=== PATIENT | female | born 1990 | race Caucasian/White ===

== ENCOUNTER 2018-10-11 11:06 | Emergency (ER) | payer BC ==
[~2018-10-11] VITALS: Ht 154.9 cm; Wt 68.0 kg
[2018-10-11 11:40] LABS: BASOPHILS # (AUTO) 0.1 (0.0-0.1); BASOPHILS % 0.7 % (0.0-1.0); EOSINOPHILS # (AUTO) 0.1 (0.0-0.4); EOSINOPHILS % 1.6 % (0.0-6.0); HEMATOCRIT 45.3 % (34.2-44.1); HEMOGLOBIN 15.1 g/dL (12.0-16.0); LYMPHOCYTES % 40.6 % (18.0-39.1); MEAN CORPUSCULAR HEMOGLOBIN 29.8 pg (28-32); MEAN CORPUSCULAR HGB CONC 33.3 g/dL (31-35); MEAN CORPUSCULAR VOLUME 89.3 fL (81-99); MONOCYTES # (AUTO) 0.4 (0.2-0.8); MONOCYTES % 4.9 % (4.4-11.3); NEUTROPHILS # (AUTO) 3.8 (2.1-6.9); NEUTROPHILS % 51.9 % (38.7-80.0); PLATELET COUNT 296 x10e3/uL (140-360); RED BLOOD COUNT 5.07 x10e6/uL (3.6-5.1); RED CELL DISTRIBUTION WIDTH 11.6 % (11.7-14.4)
[2018-10-11 11:56] LABS: ALANINE AMINOTRANSFERASE 15 IU/L (0-55); ALBUMIN 4.1 g/dL (3.5-5.0); ALBUMIN/GLOBULIN RATIO 1.2 (0.8-2.0); ALKALINE PHOSPHATASE 64 IU/L (40-150); AMYLASE 114 U/L (25-125); ANION GAP 16.6 mmol/L (8-16); BLOOD UREA NITROGEN 11 mg/dL (7-26); BUN/CREATININE RATIO 15 (6-25); CALCIUM 9.6 mg/dL (8.4-10.2); CARBON DIOXIDE 25 mmol/L (22-29); CHLORIDE 101 mmol/L (98-107); CREATININE, SERUM 0.73 mg/dL (0.57-1.11); EST GLOMERULAR FILTRATION RATE > 60 ML/MIN (60-); GLUCOSE 74 mg/dL (74-118); LIPASE 128 U/L (8-78); POTASSIUM 3.6 mmol/L (3.5-5.1); SODIUM 139 mmol/L (136-145)
[2018-10-11 12:16] LABS: THYROID STIMULATING HORMONE 1.357 uIU/mL (0.350-4.940)
--- NOTE | 2018-10-11 12:34 | NUR ---
STILL GETTING ULTRASOUND
--- NOTE | 2018-10-11 13:10 | Diagnostic Imaging Report ---
Gallbladder ultrasound. Clinical History: Epigastric pain. Bloating. Shoulder pain. Comparison: None Findings: Transverse and longitudinal imaging of the right upper quadrant. The liver is normal in size and appearance measuring 12.5 cm. The gallbladder is contracted due to recent meal. The gallbladder is otherwise normal in appearance without gallstones or sludge. No gallbladder wall thickening or pericholecystic fluid. There is no biliary ductal dilatation. The common bile duct measures4.1 mm. The sonographic Quevedo's sign is negative. No free fluid in Bui's pouch. Right kidney is normal in appearance without mass, hydronephrosis, or stone measuring 9.0 cm. The pancreas is not well seen. The abdominal aorta and inferior vena cava are not well seen. The main portal vein diameter is 9.7 mm, with normal flow. Impression: The gallbladder is contracted due to recent meal. The gallbladder is otherwise unremarkable. No gallstones are seen. No ductal dilatation is seen. Signed by: Dr. Zachary Corona M.D. on 10/11/2018 1:07 PM
[2018-10-11] MEDS ORDERED: DONNATAL/LIDOCAINE/MAALOX 30 ML SUSP PO ONE (14:00)
[2018-10-11] MEDS ORDERED: KETOROLAC TROMETHAMINE 60 MG/2 ML VIAL IM ONE (14:00)
== END 2018-10-11 14:05 | disposition home or self-care (01) ==
LOC: FSED 11:06
DX: R10.11 Right upper quadrant pain (principal); R10.84 Generalized abdominal pain; R11.0 Nausea
CPT/HCPCS: 36415; 76705; 80053; 80076; 81003; 82150; 83690; 84443; 84702; 85025; 99284; J1885

== ENCOUNTER → 2018-11-03 | Day surgery (SDC) | payer BC ==
[~2018-11-03] MED LIST: FENTANYL CITRATE/PF 100MCG/2 ML INJ ONE; HYOSCYAMINE SULFATE 0.5 MG/ML INJ ONE; LIDOCAINE HCL 2% LOCAL INJ 5 ML SDV VIAL INJ ONE; MIDAZOLAM HCL 2 MG/2 ML VIAL ONE; ONDANSETRON HCL INJ 2MG/ML 2ML 2 MG/ML VIAL ONE; PANTOPRAZOLE 40 MG 10ML VIAL ONE; PROPOFOL IV EMULSION 10 MG/ML 20 ML VIAL ONE; PROPOFOL IV EMULSION 10 MG/ML 50 ML VIAL ONE; SPRINTEC1 EACH PO
--- OUTSIDE RECORDS SUMMARY | 2018-11-03 08:00 | XMS REPORT ---
Author [facility] Address Unknown Phone Unavailable Care Team Providers Care Climate Change Risk Assessor Name Role Phone Adriane AMADOR Unavailable Unavailable Problems This patient has no known problems. Allergies, Adverse Reactions, Alerts This patient has no known allergies or adverse reactions. Medications This patient has no known medications. Results Test Description Test Time Test Comments Text Results Atomic Results Result Comments GALL BLADDER-HOPD 2018-10-11 13:05:00 [place] [address] Patient Name: DIANELYS BARRETT MR #: [id number] : 1990 Age/Sex: 28/F Req #: [id number] Adm Physician: Ordered by: SERGIO AMADOR MD Report #: [id number] Location: [facility] [place] Room/Bed: [facility] [id number] Exam Date: 10/11/18 Exam Time: 1224 REPORT STATUS: Signed Gallbladder ultrasound. Clinical History: Epigastric pain. Bloating. Shoulder pain. Comparison: None Findings: Transverse and longitudinal imaging of the right upper quadrant. The liver is normal in size and appearance measuring 12.5 cm. The gallbladder is contracted due to recent meal. The gallbladder is otherwise normal in appearance without gallstones or sludge. No gallbladder wall thickening or pericholecystic fluid. There is no biliary ductal dilatation. The common bile duct measures4.1 mm. The sonographic Quevedo's sign is negative. No free fluid in Bui's pouch. Right kidney is normal in appearance without mass, hydronephrosis, or stone measuring 9.0 cm. The pancreas is not well seen. The abdominal aorta and inferior vena cava are not well seen. The main portal vein diameter is 9.7 mm, with normal flow. Impression: The gallbladder is contracted due to recent meal. The gallbladder is otherwise unremarkable. No gallstones are seen. No ductal dilatation is seen. Signed by: Dr. Zachary Corona M.D. on 10/11/2018 1:07 PM Dictated By: ZACHARY CORONA MD, MD 1302 Transcribed By: VALENCIA on 10/11/18 1303 COPY TO: SERGIO AMADOR MD
[2018-11-03 12:00] VITALS: BP 122/81
[2018-11-03 19:29] LABS: WBC,FECAL (FECAL LACTOFERRIN) NEGATIVE (NEGATIVE)
--- NOTE | 2018-11-04 00:05 | Operative Report ---
DATE OF PROCEDURE: 11/03/2018 PROCEDURES: 1. EGD with biopsies. 2. Colonoscopy with biopsies. REFERRING PHYSICIAN: . INDICATIONS FOR ESOPHAGOGASTRODUODENOSCOPY: Upper abdominal pain, nausea. INDICATIONS FOR COLONOSCOPY: Bouts of constipation and diarrhea. MEDICATIONS: The patient was done under MAC. Please see anesthesiologist's note. PROCEDURE IN DETAIL: With the patient in left lateral decubitus position, a flexible fiberoptic Olympus gastroscope was introduced into the esophagus under direct visualization without any difficulty. There was some patchy erythema noted in the distal esophagus. A minute tongue of velvety red mucosa was noted to extend proximally from the GE junction that was biopsied to rule out Del Toro's. The scope was then advanced with ease into her stomach and the mucosa overlying the antrum and the body revealed some patchy erythema and low-grade edema. Also, there was noted a minute ulcer in the distal body, along the posterior wall with somewhat heaped-up margins and biopsies were obtained. Pylorus was normal contour and shape, was intubated with ease and the scope was advanced all the way to the second portion of the duodenum. Biopsies were obtained from the proximal second portion and the duodenal bulb to rule out sprue. The scope was then withdrawn back into the stomach, I retroflexed the mucosa overlying the fundus and the cardia appeared to be within normal limits. The scope was then straightened out and was subsequently withdrawn. The patient tolerated the procedure well. IMPRESSION: 1. Distal esophagitis. 2. Rule out Del Toro's esophagus. 3. Gastritis. 4. Gastric ulcer, minute with somewhat heaped-up margins, distal body, posterior wall, biopsied. 5. Rule out sprue. PLAN: Followup pathology. Initiate Protonix 40 mg 1 p.o. q.a.m. before meal. PROCEDURE IN DETAIL: The patient was then turned around after adequate lubrication of the anal canal, a flexible fiberoptic Olympus colonoscope was inserted into the rectum with ease and advanced all the way to the cecum. Mucosa overlying the cecum appeared to be within normal limits. The ileocecal valve was intubated, then the scope was advanced into the terminal ileum. Biopsies were obtained. The scope was then withdrawn back into the colon. It was then withdrawn slowly and the mucosa overlying the ascending and the transverse, grossly appeared to be within normal limits. There was patchy mild inflammatory changes noted in the left colon. Multiple random biopsies were obtained. The scope was then retroflexed into the distal rectum and the area around the dentate line appeared to be within normal limits. The scope was then straightened out and was subsequently withdrawn. The patient tolerated the procedure well. IMPRESSION: Mild patchy left-sided colitis, random biopsies obtained. PLAN: Followup pathology. Followup stool studies. Initiate VSL#3 one p.o. q.d. and Bentyl 10 mg 1 p.o. t.i.d. Brian Lugo MD [facility] [place] [place] /[id number] cc: Brian Lugo MD
[2018-11-04 08:27] LABS: C DIFFICILE TOXIN A&B AMP PROB NEGATIVE (NEGATIVE)
== END | disposition home or self-care (01) ==
LOC: OR 07:57
PROVIDERS: ATTEND Internal Medicine Gastroenterology
DX: K29.50 Unspecified chronic gastritis without bleeding (principal); K29.80 Duodenitis without bleeding; K51.50 Left sided colitis without complications; K25.9 Gastric ulcer, unspecified as acute or chronic, without hemorrhage or perforation; K21.0 Gastro-esophageal reflux disease with esophagitis; K29.60 Other gastritis without bleeding; K59.00 Constipation, unspecified; R79.9 Abnormal finding of blood chemistry, unspecified; Z88.8 Allergy status to other drugs, medicaments and biological substances; Z68.28 Body mass index [BMI] 28.0-28.9, adult; Z80.0 Family history of malignant neoplasm of digestive organs
CPT/HCPCS: 43239; 45380; 81025; 83630; 83993; 87045; 87177; 87328; 87493; C9113; J1980; J2001; J2250; J2405; J2704 ×2; 45378

== ENCOUNTER → 2018-11-17 | Outpatient (CLI) | payer BC ==
[~2018-11-17] MED LIST changes: -FENTANYL CITRATE/PF 100MCG/2 ML INJ ONE; -HYOSCYAMINE SULFATE 0.5 MG/ML INJ ONE; -LIDOCAINE HCL 2% LOCAL INJ 5 ML SDV VIAL INJ ONE; -MIDAZOLAM HCL 2 MG/2 ML VIAL ONE; -ONDANSETRON HCL INJ 2MG/ML 2ML 2 MG/ML VIAL ONE; -PANTOPRAZOLE 40 MG 10ML VIAL ONE; -PROPOFOL IV EMULSION 10 MG/ML 20 ML VIAL ONE; -PROPOFOL IV EMULSION 10 MG/ML 50 ML VIAL ONE
== END ==
LOC: LAB 11:46
PROVIDERS: ATTEND Internal Medicine Gastroenterology
DX: K58.1 Irritable bowel syndrome with constipation (principal); L30.9 Dermatitis, unspecified
CPT/HCPCS: 82525; 82784; 83516; 86003; 86256

== ENCOUNTER 2018-12-28 23:08 | Emergency (ER) | payer BC ==
[~2018-12-28] VITALS: Ht 154.9 cm; Wt 68.0 kg
[~2018-12-28 23:08] MED LIST changes: -CARAFATE1 GM/10 ML PO; -DIATRIZOATE MEGL/DIATRIZOA SOD 30 ML BTL PO ONE; -DICYCLOMINE HCL10 MG PO; -PANTOPRAZOLE SO40 MG PO
[2018-12-28] MEDS ORDERED: ONDANSETRON HCL INJ 2MG/ML 2ML 2 MG/ML VIAL IV STA (23:13)
[2018-12-28] MEDS ORDERED: DICYCLOMINE HCL 20 MG/2 ML VIAL IM ONE (23:15)
[2018-12-28] MEDS ORDERED: MORPHINE SULFATE INJ 4 MG/ML INJ 1ML IV PRN (23:15)
[2018-12-28] MEDS ORDERED: SODIUM CHLORIDE 0.9% 1000ML 1,000 ML IV ONE (23:15)
[2018-12-28 23:58] LABS: BASOPHILS # (AUTO) 0.1 (0.0-0.1); BASOPHILS % 0.9 % (0.0-1.0); EOSINOPHILS # (AUTO) 0.1 (0.0-0.4); EOSINOPHILS % 1.7 % (0.0-6.0); HEMATOCRIT 40.9 % (34.2-44.1); HEMOGLOBIN 13.9 g/dL (12.0-16.0); LYMPHOCYTES # (AUTO) 2.9 (1.0-3.2); LYMPHOCYTES % 49.7 % (18.0-39.1); MEAN CORPUSCULAR HEMOGLOBIN 29.6 pg (28-32); MEAN CORPUSCULAR VOLUME 87.2 fL (81-99); MONOCYTES # (AUTO) 0.4 (0.2-0.8); NEUTROPHILS # (AUTO) 2.5 (2.1-6.9); NEUTROPHILS % 41.7 % (38.7-80.0); PLATELET COUNT 259 x10e3/uL (140-360); RED BLOOD COUNT 4.69 x10e6/uL (3.6-5.1)
[2018-12-29 00:13] LABS: PREGNANCY TEST, URINE NEGATIVE (NEGATIVE)
[2018-12-29 00:15] LABS: ALANINE AMINOTRANSFERASE 19 IU/L (0-55); ALBUMIN 3.6 g/dL (3.5-5.0); ALKALINE PHOSPHATASE 49 IU/L (40-150); AMYLASE 52 U/L (25-125); ANION GAP 12.8 mmol/L (8-16); BLOOD UREA NITROGEN 12 mg/dL (7-26); BUN/CREATININE RATIO 15 (6-25); CARBON DIOXIDE 25 mmol/L (22-29); CHLORIDE 105 mmol/L (98-107); CREATININE, SERUM 0.78 mg/dL (0.57-1.11); EST GLOMERULAR FILTRATION RATE > 60 ML/MIN (60-); GLUCOSE 104 mg/dL (74-118); LIPASE 65 U/L (8-78); POTASSIUM 3.8 mmol/L (3.5-5.1); SODIUM 139 mmol/L (136-145)
[2018-12-29 00:15] LABS: CLARITY,URINE CLEAR (CLEAR); COLOR,URINE YELLOW (YELLOW); KETONES,URINE 1+ (NEGATIVE); LEUKOCYTE ESTERASE ,URINE NEGATIVE (NEGATIVE); NITRITE,URINE NEGATIVE (NEGATIVE); PROTEIN,URINE DIPSTICK TRACE (NEGATIVE)
[2018-12-29 00:16] LABS: BILIRUBIN,URINE NEGATIVE (NEGATIVE); URINE UROBILINOGEN 0.2 mg/dL (0.2 - 1)
[2018-12-29 00:22] LABS: BACTERIA,URINE FEW /HPF; EPITHELIAL CELLS,URINE FEW /LPF; RBC,URINE 0-5 /HPF (0-5); WBC,URINE (MAN) 0-5 /HPF (0-5)
--- NOTE | 2018-12-29 01:44 | Diagnostic Imaging Report ---
CT Abdomen And Pelvis with Intravenous Contrast INDICATION: Nausea and diarrhea, epigastric pain, increased after HIDA scan ^ruq pain ^Y TECHNIQUE: Thin collimation axial images obtained from the diaphragm to the level of the pubic symphysis following the uneventful administration of 100 cc of low osmolar, nonionic intravenous contrast. Dose reduction techniques used: Automated exposure control, adjustment of the mAs and/or kVp according to patient size, standardized low-dose protocol, and/or iterative reconstruction technique. RADIATION DOSE: Total DLP: 310.05 mGy*cm Estimated effective dose: (DLP x 0.015 x size factor) mSv CTDIvol has been reviewed. It is below the limits set by the Radiation Protocol Committee (RPC). COMPARISON: Right upper quadrant ultrasound 10/11/2018, HIDA scan 12/28/2018. ABDOMEN FINDINGS: Lung Bases: Clear. The visualized portions of the mediastinum are normal.. Liver: Normal attenuation. No evidence for mass. Gallbladder: Present and is contracted. No biliary ductal dilatation. Pancreas: Normal attenuation without mass or ductal dilatation. Spleen: Normal in size. No evidence of mass.. Adrenal Glands: No evidence for mass. Kidneys: Right: Normal enhancement. No soft tissue mass. No hydronephrosis. Left: Normal enhancement. No soft tissue mass. No hydronephrosis. Lymph Nodes: No enlarged abdominal or periaortic lymph nodes. Aorta: Normal in diameter PELVIS FINDINGS: Bowel: Stomach: Normal. Small Bowel: Normal in caliber with normal wall thickness. Large Bowel: Normal in caliber with normal wall thickness. Appendix: Normal appendix. Bladder: Normal. Uterus/adnexa: Normal. Peritoneum/retroperitoneum: No free fluid or fluid collection. Bones: Unremarkable. Soft tissues: Focal subcutaneous air in the posterior right pelvis with associated soft tissue inflammation. This may be secondary to injection. IMPRESSION: 1. No evidence for bowel obstruction or inflammation. Normal appendix. 2. Contracted gallbladder. Normal biliary tree. Signed by: Dr. Miguelina Collado MD on 12/29/2018 1:41 AM
[2018-12-29 02:18] VITALS: BP 125/73
[2018-12-29] MEDS ORDERED: SODIUM CHLORIDE 0.9% 50ML 50 ML ONE (05:24)
[2018-12-29] MEDS ORDERED: IOPAMIDOL 370 MG/ML 200 ML INFUS..BTL INJ ONE (05:24)
== END 2018-12-29 02:25 | disposition home or self-care (01) ==
LOC: ER 23:08
DX: R10.11 Right upper quadrant pain (principal); R11.0 Nausea; K80.50 Calculus of bile duct without cholangitis or cholecystitis without obstruction
CPT/HCPCS: 36415; 74177; 80053; 81001; 81025; 82150; 83690; 85025; 99283; J0500; J2405; J7030; Q9967

== ENCOUNTER → 2018-12-28 | Outpatient (CLI) | payer BC ==
[~2018-12-28] MED LIST changes: +CARAFATE1 GM/10 ML PO; +DIATRIZOATE MEGL/DIATRIZOA SOD 30 ML BTL PO ONE; +DICYCLOMINE HCL10 MG PO; +PANTOPRAZOLE SO40 MG PO
--- NOTE | 2018-12-29 10:10 | Diagnostic Imaging Report ---
Hepatobiliary Scan with Gallbladder Ejection Fraction Clinical information: Gastric ulcer; epigastric pain Technique: Following intravenous administration of 6.6 millicuries of Tc-99m mebrofenin, dynamic images of the abdomen in the anterior projection were obtained through 30 minutes. Sincalide (CCK analog) 1.5 micrograms was administered intravenously over 30 minutes with additional imaging for determination of gallbladder ejection fraction. Discussion: Perfusion of the liver is normal. Extraction of tracer by the liver parenchyma is normal. Tracer appears promptly within the biliary tract. The gallbladder begins to fill by 12 minutes post injection of tracer and fills adequately. Tracer is seen in the small bowel by 25 minutes. The gallbladder ejection fraction with sincalide is 35% (normal greater than 40%). Impression: 1. Filling of the gallbladder excludes acute cystic duct obstruction/acute cholecystitis. 2. The decreased gallbladder ejection fraction of 35% supports the clinical diagnosis of chronic cholecystitis/gallbladder dyskinesia. Signed by: Dr. Hellen Valdes M.D. on 12/29/2018 10:07 AM
== END ==
LOC: CT 11:30
PROVIDERS: ATTEND Internal Medicine Gastroenterology
DX: K25.9 Gastric ulcer, unspecified as acute or chronic, without hemorrhage or perforation (principal); R10.13 Epigastric pain; R12 Heartburn; R94.8 Abnormal results of function studies of other organs and systems; R94.5 Abnormal results of liver function studies
CPT/HCPCS: 78227; 81025; A9537

== ENCOUNTER 2018-12-30 17:54 | Observation (INO) | payer BC ==
[~2018-12-30] VITALS: Ht 154.9 cm; Wt 68.0 kg
[2018-12-30] MEDS ORDERED: MORPHINE SULFATE 2 MG/ML SYR 1ML IV PRN (18:00)
[2018-12-30 18:43] LABS: INR 0.94; PROTHROMBIN TIME 13.1 seconds (11.9-14.5)
--- NOTE | 2018-12-30 19:10 | NUR ---
Report taken from am rn.walking rounds done.assessment done.no resp.distress.abd pain voiced 11/20.iv right ac #20 g patent.oriented to the unit.bed locked an din lowest position.phone and call light within reach.instructed to call for assistance as needed.
[2018-12-30 19:25] VITALS: BP 131/89
[2018-12-30 20:38] VITALS: BP 116/69
[2018-12-30 21:00] VITALS: BP 116/69
--- NOTE | 2018-12-30 23:10 | NUR ---
Consent signed.génesisicleans bath taken.new iv started @ right for arm.patent.
[2018-12-30] MEDS: ONDANSETRON HCL INJ 2MG/ML 2ML 2 MG/ML VIAL IV PRN (23:20)
[2018-12-30] MEDS: MORPHINE SULFATE INJ 4 MG/ML INJ 1ML IV PRN (23:22)
[2018-12-31] VITALS (7 sets, daily range): BP systolic 110–143; BP diastolic 55–85
[2018-12-31] MEDS ORDERED: DICYCLOMINE HCL10 MG PO (00:51)
[2018-12-31] MEDS ORDERED: CARAFATE1 GM/10 ML PO (00:51)
[2018-12-31] MEDS ORDERED: PANTOPRAZOLE SO40 MG PO (00:51)
[2018-12-31 05:59] LABS: BASOPHILS # (AUTO) 0.1 (0.0-0.1); BASOPHILS % 0.8 % (0.0-1.0); EOSINOPHILS # (AUTO) 0.3 (0.0-0.4); EOSINOPHILS % 4.6 % (0.0-6.0); HEMATOCRIT 39.5 % (34.2-44.1); HEMOGLOBIN 13.2 g/dL (12.0-16.0); LYMPHOCYTES # (AUTO) 3.2 (1.0-3.2); LYMPHOCYTES % 51.8 % (18.0-39.1); MEAN CORPUSCULAR HEMOGLOBIN 29.2 pg (28-32); MEAN CORPUSCULAR HGB CONC 33.4 g/dL (31-35); MEAN CORPUSCULAR VOLUME 87.4 fL (81-99); MONOCYTES # (AUTO) 0.5 (0.2-0.8); MONOCYTES % 7.2 % (4.4-11.3); NEUTROPHILS # (AUTO) 2.2 (2.1-6.9); NEUTROPHILS % 35.4 % (38.7-80.0); PLATELET COUNT 250 x10e3/uL (140-360); RED BLOOD COUNT 4.52 x10e6/uL (3.6-5.1); RED CELL DISTRIBUTION WIDTH 11.9 % (11.7-14.4)
[2018-12-31 06:14] LABS: ALANINE AMINOTRANSFERASE 15 IU/L (0-55); ALBUMIN 3.5 g/dL (3.5-5.0); ALBUMIN/GLOBULIN RATIO 1.2 (0.8-2.0); ALKALINE PHOSPHATASE 44 IU/L (40-150); ANION GAP 11.4 mmol/L (8-16); BLOOD UREA NITROGEN 8 mg/dL (7-26); BUN/CREATININE RATIO 12 (6-25); CALCIUM 9.1 mg/dL (8.4-10.2); CARBON DIOXIDE 27 mmol/L (22-29); CHLORIDE 106 mmol/L (98-107); CREATININE, SERUM 0.69 mg/dL (0.57-1.11); EST GLOMERULAR FILTRATION RATE > 60 ML/MIN (60-); GLUCOSE 88 mg/dL (74-118); POTASSIUM 3.4 mmol/L (3.5-5.1); SODIUM 141 mmol/L (136-145)
--- NOTE | 2018-12-31 06:50 | NUR ---
Report given to the oncoming rn.walking rounds done.stable condition.
--- NOTE | 2018-12-31 07:18 | NUR ---
RECEIVED PATIENT AWAKE RESTING IN BED NO SIGNS OF DISTRESS AT THIS TIME. CALL LIGHT IN REACH WILL CONTINUE TO MONITOR.
[2018-12-31] MEDS ORDERED: BUPIVACAINE 0.25%/EPI 30ML SDV INJ ONE (07:30)
--- NOTE | 2018-12-31 08:17 | NUR ---
PATIENT LEFT TO OR AT THIS TIME VIA STRETCHER.
[2018-12-31] MEDS ORDERED: CEFOXITIN SOD 1 GM VIAL ONE (08:53)
[2018-12-31] MEDS ORDERED: FENTANYL CITRATE/PF 100MCG/2 ML INJ ONE ×2 (09:57→18:20)
[2018-12-31] MEDS ORDERED: ONDANSETRON HCL INJ 2MG/ML 2ML 2 MG/ML VIAL ONE ×2 (10:00→18:20)
--- NOTE | 2018-12-31 10:23 | NUR ---
RECEIVED REPORT FROM RECOVERY NURSE. WAITING FOR PATIENT AT THIS TIME.
--- NOTE | 2018-12-31 10:26 | NUR ---
REPORT GIVEN TO STELLA MICHEL.
--- NOTE | 2018-12-31 10:36 | NUR ---
patient arrived on floor, alert and oriented. call jerome within reach and bed in lowest position.
--- NOTE | 2018-12-31 10:58 | NUR ---
WENT TO SEE PT AND PERFORM INITIAL DISHCHARGE PLAN. PT NOT IN ROOM. WILL FOLLOW UP LATER
--- NOTE | 2018-12-31 11:30 | NUR ---
AGAIN WENT TO SEE PT FOR INITIAL DC PLAN, AND SHE REMAINS IN SURGERY.
[2018-12-31] MEDS: ACETAMINOPHEN/CODEINE 300MG - 30MG TAB PO PRN ×3 (13:20→23:28)
[2018-12-31] MEDS: ONDANSETRON HCL INJ 2MG/ML 2ML 2 MG/ML VIAL IV PRN ×2 (13:20→17:55)
--- NOTE | 2018-12-31 15:11 | History and Physical ---
CHIEF COMPLAINT: Abdominal pain. HISTORY OF PRESENT ILLNESS: This is a 28-year-old female with two-month history of epigastric pain, radiating to the back with fatty food intolerance. The patient has had multiple workup studies including upper GI endoscopy showing gastritis. Recent HIDA scan showed low ejection fraction of gallbladder with pain reproduced during the procedure. PAST MEDICAL HISTORY: Negative. She has no previous surgery. ALLERGIES: THE PATIENT IS ALLERGIC TO GLUTEN. SOCIAL HISTORY: She does not smoke or drink. REVIEW OF SYSTEMS: No cough, chest pain, or shortness of breath. PHYSICAL EXAMINATION: VITAL SIGNS: Stable, afebrile. GENERAL: She is awake, alert, in moderate discomfort. HEENT: Sclera nonicteric. NECK: Supple. LUNGS: Clear. HEART: Regular rate and rhythm. ABDOMEN: Soft. Some mild guarding epigastrium. No rebound. EXTREMITIES: No cyanosis or edema. LABORATORY DATA: White cell count 6, hemoglobin of 13, and creatinine of 0.7. Liver function tests within normal limits. Ultrasound of gallbladder showed contraction, no gallstones. HIDA scan showed ejection fraction of 35%, consistent with dyskinesia. ASSESSMENT: Cholecystitis secondary to biliary dyskinesia. PLAN: Laparoscopic cholecystectomy. Attendant risks discussed. Randy Catherine MD DNEugenio/MODL /[id number]
--- NOTE | 2018-12-31 16:11 | Operative Report ---
DATE OF PROCEDURE: 12/31/2018 SURGEON: Randy Catherine MD PREOPERATIVE DIAGNOSIS: Biliary dyskinesia. POSTOPERATIVE DIAGNOSES: Biliary dyskinesia and cholecystitis. OPERATIVE PROCEDURE: Laparoscopic cholecystectomy. SERVICE UNIT OPERATOR OIL WELL: None. ANESTHESIA: General endotracheal, Dr. Grajeda. INDICATIONS: This is a 28-year-old female with chronic abdominal pain with HIDA scan that showed low ejection fraction consistent with biliary dyskinesia. The patient consented for laparoscopy cholecystectomy and attendant risks discussed. PROCEDURE FINDING: Chronic cholecystitis. DESCRIPTION OF PROCEDURE: The patient was brought to the OR, intubated. Abdomen was prepped with alcohol and draped in sterile fashion. Infraumbilical incision is made and a 10 mm port inserted. Insufflation then began under direct vision. Other port sites were placed in the midepigastric and right upper quadrant. Gallbladder chronically inflamed. Fundus retracted in cephalad direction. Next, the gallbladder retracted laterally with blunt and sharp dissection. We then proceeded to isolate the cystic artery and cystic duct, and the junction with common bile duct is noted before triple clipping the cystic artery and cystic duct, and divided them between clips. Gallbladder detached from the liver with cautery and taken out through umbilical incision. Operative field was irrigated. Hemostasis was achieved. All ports were removed under direct vision. Fascia closure with 0 Vicryl. Skin was closed with subcuticular stitch. The patient is extubated and transferred to recovery room. ESTIMATED BLOOD LOSS: 10 mL. Randy Catherine MD DNL/MODL /[id number]
[2018-12-31] MEDS ORDERED: DEXAMETHASONE SOD PHOS INJ 4 MG/ML VIAL ONE (18:20)
[2018-12-31] MEDS ORDERED: ACETAMINOPHEN 1000 MG/100 ML IV ONE (18:20)
[2018-12-31] MEDS ORDERED: NEOSTIGMINE 5 MG/5ML SYR ONE (18:20)
[2018-12-31] MEDS ORDERED: PROPOFOL IV EMULSION 10 MG/ML 20 ML VIAL ONE (18:20)
[2018-12-31] MEDS ORDERED: MIDAZOLAM HCL 2 MG/2 ML VIAL ONE (18:20)
[2018-12-31] MEDS ORDERED: SEVOFLURANE INHAL SOLN 250 ML PEN BTL ONE (18:20)
[2018-12-31] MEDS ORDERED: LIDOCAINE HCL 2% LOCAL INJ 5 ML SDV VIAL INJ ONE (18:20)
[2018-12-31] MEDS ORDERED: GLYCOPYRROLATE INJ 1MG/ 5 ML SYR ONE (18:20)
--- NOTE | 2018-12-31 18:45 | NUR ---
rounded with small boat engineer nurse, patient aware of change and in no distress. call jerome within reach and bed in lowest position.
--- NOTE | 2018-12-31 21:02 | NUR ---
Assessment done.no resp.distress. pain voiced 09/22.four trochar sites on abdomen dry .no pass gas .ambulates.stable condition.voided.refused pain medicine.iv right forarm #20 g patent.bed locked and in lowest position.phone and call light within reach.instructed to call for assistance as needed.
[2019-01-01] VITALS: BP 110/59
[2019-01-01] MEDS: MORPHINE SULFATE INJ 4 MG/ML INJ 1ML IV PRN (02:42)
[2019-01-01] MEDS: ONDANSETRON HCL INJ 2MG/ML 2ML 2 MG/ML VIAL IV PRN ×2 (02:42→08:55)
[2019-01-01 04:00] VITALS: BP 108/61
--- NOTE | 2019-01-01 06:50 | NUR ---
Report given to the oncoming rn.walking rounds done.stable condition.
[2019-01-01 07:20] VITALS: BP 107/62
[2019-01-01 07:30] VITALS: BP 107/62
[2019-01-01] MEDS: ACETAMINOPHEN/CODEINE 300MG - 30MG TAB PO PRN (08:55)
[2019-01-01 11:21] VITALS: BP 137/72
[2019-01-01] MEDS ORDERED: ZOFRAN4 MG PO (12:52)
[2019-01-01] MEDS ORDERED: TYLENOL WITH C1 EACH PO (12:52)
--- NOTE | 2019-01-01 13:05 | NUR ---
patient alert and oriented. discharge instructions given at this time and patient verbalized understanding. IV discontinued, catheter in tact and small dressing applied. patient refused wheelchair assistance and will be escorted to personal auto for patient to be driven home by family.
== END 2019-01-01 13:15 | disposition home or self-care (01) ==
LOC: ER 17:54 → ERHOLD 18:42 → MED/SURG 18:43
PROVIDERS: ADMIT Surgery; ATTEND Surgery
DX: K81.9 Cholecystitis, unspecified (principal); K82.8 Other specified diseases of gallbladder
CPT/HCPCS: 36415 ×2; 47562; 80053; 84702; 85025; 85610; 86850; 86900; 88304; 99284; G0378 ×3; J0131; J0694; J1100; J2001; J2250; J2270 ×2; J2405 ×3; J2704; J3490